=== PATIENT | female | born 1995 | race Caucasian/White ===

== ENCOUNTER 2017-07-04 05:38 | Inpatient (IN) ==
[2017-07-04] MEDS ORDERED: ONDANSETRON 4 MG/2 ML VIAL IV PRN ×2 (05:56→17:36)
[2017-07-04] MEDS ORDERED: MEPERIDINE 50 MG/1 ML VIAL IV PRN (05:56)
[2017-07-04] MEDS ORDERED: BUTORPHANOL 2 MG/ML VIAL IV PRN (05:56)
[2017-07-04] MEDS ORDERED: OXYTOCIN/LR 20 UNIT/1,000 ML BAG IV SCH (06:00)
[2017-07-04] MEDS: LACTATED RINGERS 1,000 ML IV SCH ×2 (06:25→14:30)
[2017-07-04 06:40] LABS: Basophils % 0.2 % (0.0-0.8); Eosinophils # 0.1 10*3/uL (0.0-0.87); Eosinophils % 1.2 % (0.00-10.9); Hematocrit 34.2 VOL% (35.7-47.0); Hemoglobin 11.4 GM/DL (12.0-16.0); Immature Granulocytes % 0.8 %; Immature Granulocytes Absolute 0.08 #; Lymphocytes # 1.9 10*3/uL (1.4-4.0); Lymphocytes % 19.2 % (21.3-54.2); Mean Corpuscular HGB Conc 33.3 GM/DL (32-36); Mean Corpuscular Hemoglobin 29 PG (27-34); Mean Corpuscular Volume 88.1 FL (87-102); Mean Platelet Volume 11.2 FL (9.6-12.0); Monocytes # 0.6 10*3/uL (0.11-0.8); Monocytes % 6.3 % (1.7-12.7); Neutrophils # 7.1 10*3/uL (1.4-7.4); Neutrophils % 72.3 % (38.7-73.9); Platelet Count 224 T/CUMM (130-400); Red Blood Count 3.88 MC/CUMM (3.8-5.5); Red Cell Distribution Width 14.9 % (9.3-17.3); White Blood Count 9.9 T/CUMM (4-12)
[2017-07-04 07:17] LABS: Albumin 2.4 G/DL (3.4-5.0); Bilirubin,Total 0.5 MG/DL (0.2-1.0); Calcium 8.2 MG/DL (8.5-10.1); Osmolality,Calculated 277.4 MOS/KG (273-304); Potassium 3.7 MMOL/L (3.5-5.1); Total Protein 5.8 G/DL (6.4-8.3)
--- NOTE | 2017-07-04 08:40 | OB/GYN History & Physical ---
History of Present Illness Chief complaint: In for elective induction due to term . History of present illness: Ms. Faustin is a 21 year old female with a 2 para 0 AB 1 her VIELKA is 07/07/2017 estimated gestational age of 39 weeks and 4 days. She presents for elective induction of labor due to term . The risk and benefits of been thoroughly discussed with this patient and significant other, plan of care has been discussed with Dr. Mccracken and all parties are in agreement plan. The patient began her care late at the [facility] she then received routine care thereafter. Her was uncomplicated until yesterday when the patient started to experience symptoms of Pabon palsy. She has left-sided facial drooping. labs: She is a positive, rubella is immune, RPR is nonreactive, hepatitis B negative, HIV negative, GBS culture negative. Review of systems is negative with exception of above. Home Medications Medication Instructions Recorded Confirmed Type Labetalol Tab [Trandate Tab] 100 mg PO BID 07/04/17 07/04/17 History Allergies Allergy/AdvReac Type Severity Reaction Status Date / Time No Known Allergies Allergy Verified 06/18/17 16:46 12 point system: reviewed and no additional remarkable complaints except as stated Medical,Surgical,& Family Hx - Medical History Cardio: History of: Hypertension Reproductive: No history of: Ectopic , Complication - Surgical History Surgical History: noncontributory Cardiac Surgeries: Patient Denies: Cardiac Catheterization Reproductive Surgeries: Patient denies;: Section - Family History Family History: Reports;: Family Hypertension (mother) - Social History Smoking Status: Never smoker Frequency of Alcohol Use: None Type of Drug Use: None Marital Status: Single Lives With:: Significant Other Functional capacity: independent ambulation 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 - Constitutional Vitals: Vital Signs Temp Pulse Resp BP 07/04/17 07:39 97.4 F L 113 H 20 108/64 General appearance: no acute distress - Antepartum / Post Antepartum Exam Cervix - Dilatation: 4 cm Effacement: 70% Station: -2 Rupture: Intact Presentation: Vertex Heart Rate: 140s Breast: bilateral: normal Vagina: Present: normal moisture Uterus exam: Present: enlarged - Head Head exam: Present: other (Left-sided facial droop) - Respiratory Respiratory exam: Present: clear to auscultation bilaterally - Cardiovascular Cardiovascular exam: Present: regular rate and rhythm - GI/Abdominal GI/Abdominal exam: Present: normal bowel sounds - Extremities Exam Extremities exam: Present: normal inspection - Neurological Exam Neurological exam: Present: alert, oriented X3 - Psychiatric Psychiatric exam: Present: normal affect, normal mood - Skin Skin exam: Present: normal color, warm Assessment and Plan (1) 39 weeks gestation of Status: Acute Assessment and plan: Admit IV fluids IV Pitocin per protocol Artificial rupture membranes when appropriate Internal monitors if indicated Epidural anesthesia if desired Anticipate Current Visit: Yes Results - Labs CBC & BMP: 07/04/17 06:15 07/04/17 06:15
[2017-07-04] MEDS ORDERED: diphenhydrAMINE 50 MG/1 ML VIAL IV PRN ×2 (09:00)
[2017-07-04] MEDS ORDERED: LACTATED RINGERS 1,000 ML IV ONE (09:00)
[2017-07-04] MEDS ORDERED: ePHEDrine 50 MG/ML AMP IV PRN (09:00)
[2017-07-04] MEDS ORDERED: PROMETHAZINE 25 MG/1 ML VIAL IM ONE (09:00)
[2017-07-04] MEDS ORDERED: hydrOXYzine HCL 25 MG/1 ML VIAL IM PRN (09:00)
[2017-07-04] MEDS ORDERED: ONDANSETRON 4 MG/2 ML VIAL IV ONE (09:00)
[2017-07-04] MEDS ORDERED: CITRIC ACID/SODIUM CITRATE 30 ML UDCUP PO ONE (09:00)
[2017-07-04] MEDS ORDERED: fentaNYL 2 MCG/ROPIV 0.2% EPID 150 ML EPIDURAL SCH (09:00)
[2017-07-04] MEDS ORDERED: FAMOTIDINE 20 MG/2 ML VIAL IV ONE (09:00)
[2017-07-04 14:43] LABS: Apearance,Urine Slightly Hazy (Clear); Bacteria,Urine Occasional /HPF (Few); Bilirubin,Urine Negative (Negative); Blood, Urine Negative (Negative); Glucose,Urine (UA) Negative (Negative); Ketones,Urine 5 mg/dL (Negative); Mucus,Urine Occasional /LPF (Occasional); Nitrite,Urine Positive (Negative); Protein,Urine Negative; RBC,Urine 1 /HPF (0-4); Squamous Epithelial Cell,Urine Occasional /HPF (0-10); Urine Color Yellow (Yellow); Urine Specific Gravity 1.015 (1.001-1.035); WBC,Urine <1 /HPF (0-6)
[2017-07-04] MEDS ORDERED: LIDOCAINE 1% 50 ML VIAL ONE (16:43)
[2017-07-04] MEDS ORDERED: oxyCODONE/ACETAMINOPHEN 5-325 MG TABLET PO PRN (17:36)
[2017-07-04] MEDS ORDERED: HYDROCORTISONE 2.5% RECTAL CREAM 30 GM TUBE TOP PRN (17:36)
[2017-07-04] MEDS ORDERED: ACETAMINOPHEN 325 MG TABLET PO PRN (17:36)
[2017-07-04] MEDS ORDERED: LANOLIN 50% CREAM 0.3 OZ TUBE TOP PRN (17:36)
[2017-07-04] MEDS ORDERED: RHO(D) IMMUNE GLOBULIN 300 MCG SYRINGE IM ONE (17:36)
[2017-07-04] MEDS ORDERED: OXYTOCIN/LR 20 UNIT/1,000 ML BAG IV ONE (17:36)
[2017-07-04] MEDS ORDERED: MEASLES/MUMPS/RUBELLA VACCINE 0.5 ML VIAL SUBCUT ONE (17:36)
[2017-07-04] MEDS ORDERED: DIPH/TET/ACEL PERT BOOSTER VACCINE 0.5 ML VIAL IM ONE (17:36)
[2017-07-04] MEDS ORDERED: BISACODYL 10 MG SUPP RECTAL PRN (17:36)
[2017-07-04] MEDS ORDERED: BENZOCAINE 20%/MENTHOL 0.5% SPRAY 56 GM CAN TOP PRN (17:36)
[2017-07-04] MEDS ORDERED: WITCH HAZEL PADS 100/JAR TOP PRN (17:36)
[2017-07-04] MEDS ORDERED: IBUPROFEN 800 MG TABLET PO PRN (17:36)
--- NOTE | 2017-07-04 17:36 | Event Note ---
Stage I of labor Prostaglandin gel IV Pitocin Epidural anesthetic Artificial rupture membranes clear fluid heart tones category 1 Stage II Delivery time is 5:02 PM Cord blood and cord gas obtained Male 8 lbs. 9 oz. Apgars was 91 minute and 9 at 5 minutes Stage III 3 cord vessels noted Placenta was delivered on the complication Blood loss was 300 cc Small vaginal wall laceration repair with #3-0 chromic on the right lateral wall. Mother and stable
[2017-07-04] MEDS: DOCUSATE SODIUM 100 MG CAPSULE PO SCH (22:35)
[2017-07-04] MEDS: oxyCODONE/ACETAMINOPHEN 5-325 MG TABLET PO PRN (22:35)
[2017-07-04] MEDS: LABETALOL 100 MG TABLET PO SCH (22:35)
[2017-07-05 04:57] LABS: Basophils % 0.2 % (0.0-0.8); Eosinophils # 0.1 10*3/uL (0.0-0.87); Eosinophils % 0.7 % (0.00-10.9); Hematocrit 32.5 VOL% (35.7-47.0); Hemoglobin 10.3 GM/DL (12.0-16.0); Immature Granulocytes Absolute 0.11 #; Lymphocytes % 17.6 % (21.3-54.2); Mean Corpuscular HGB Conc 31.7 GM/DL (32-36); Mean Corpuscular Hemoglobin 29 PG (27-34); Mean Corpuscular Volume 91.3 FL (87-102); Mean Platelet Volume 11.2 FL (9.6-12.0); Monocytes # 0.9 10*3/uL (0.11-0.8); Monocytes % 8.4 % (1.7-12.7); Neutrophils # 8.1 10*3/uL (1.4-7.4); Neutrophils % 72.1 % (38.7-73.9); Platelet Count 178 T/CUMM (130-400); Red Blood Count 3.56 MC/CUMM (3.8-5.5); Red Cell Distribution Width 14.6 % (9.3-17.3); White Blood Count 11.2 T/CUMM (4-12)
[2017-07-05] MEDS: DOCUSATE SODIUM 100 MG CAPSULE PO SCH ×2 (08:25→20:30)
[2017-07-05] MEDS: LABETALOL 100 MG TABLET PO SCH ×2 (08:25→20:30)
--- NOTE | 2017-07-05 09:22 | Anesthesia Post-Op ---
Anesthesia Post OP - Post Ansesthetic Evaluation Patient seen in post op: Yes Resp: within normal limits CV: within normal limits Mental: within normal limits Temp: within normal limits [id number]: within normal limits Nausea and Vomiting: within normal limits Pain: within normal limits
--- NOTE | 2017-07-05 15:14 | OB/GYN Progress Note ---
Assessment and Plan (1) 39 weeks gestation of Status: Acute Assessment and plan: Admit IV fluids IV Pitocin per protocol Artificial rupture membranes when appropriate Internal monitors if indicated Epidural anesthesia if desired Anticipate Current Visit: Yes (2) Vaginal delivery Status: Acute Assessment and plan: Initiate routine orders. 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 Still having some left-sided facial droop. Exam MATERIALS DEVELOPMENT ENGINEER - Constitutional Vitals: Vital Signs Temp Pulse Resp BP Pulse Ox 07/05/17 12:00 96.8 F L 93 H 18 122/69 98 07/05/17 08:00 97.1 F L 86 19 111/86 100 07/05/17 04:00 96.1 F L 92 H 18 95/64 98 07/05/17 03:00 20 07/05/17 02:00 18 07/05/17 01:00 18 07/05/17 00:00 97.3 F L 105 H 18 122/86 97 07/04/17 23:00 100 H 18 118/78 99 07/04/17 22:00 112 H 18 126/78 99 07/04/17 21:00 97.8 F 107 H 18 118/82 97 07/04/17 19:31 98.4 F 113 H 18 106/74 General appearance: no acute distress - Antepartum / Post Post Exam Breast: bilateral: normal Abdomen obstetrics: Present: bowel sounds normal Vagina: Present: normal moisture Uterus exam: Present: enlarged Anus/Rectum: Present: normal perianal skin - ENT ENT exam: Present: other (facial drooping) - Respiratory Respiratory exam: Present: clear to auscultation bilaterally - Cardiovascular Cardiovascular exam: Present: regular rate and rhythm - GI/Abdominal GI/Abdominal exam: Present: normal bowel sounds, soft - Extremities Exam Extremities exam: Present: normal inspection - Neurological Exam Neurological exam: Present: alert, oriented X3 - Psychiatric Psychiatric exam: Present: normal affect, normal mood - Skin Skin exam: Present: normal color, warm Results - Labs CBC & BMP: 07/05/17 04:31 07/04/17 06:15
--- NOTE | 2017-07-05 15:18 | Discharge Summary ---
Hospital Course - Hospital Course Hospital Course: Patient presented to the labor department for elective induction of labor due to term . She subsequently delivered a viable with no complications. However the patient did present with facial drooping and tingling and suspected Pabon's palsy. Otherwise she has had a normal course. Her bleeding is minimal with no odor. Her perineum is intact with no edema. Her fundus is firm and midline. Bowel sounds are positive. She is bonding well with her . Her vital signs and lab values are stable. A neurological consult will be made prior to discharge. Contraception options has been discussed. The patient will be discharged to home with pain meds and an appointment to follow-up in our office. Diagnosis - Discharge Diagnosis (1) 39 weeks gestation of Status: Acute (2) Vaginal delivery Status: Acute Specialty Discharge - Follow Up or Referrals Follow up with: Brian Mccracken MD [Physician] - (Follow-up in 6 weeks.) Discharge Plan - Discharge Data Disposition: Disch To Home/Self Care Condition at Discharge: Stable Discharge Diet: advance to your usual diet Activity: resume usual activities as tolerated Hygiene: may shower Weight Bearing at Discharge: weight bear as tolerated Driving: no restrictions Contact your physician if you experience:: fever over 101, pain uncontrolled by pain medications - Discharge Medications New Acetamin/Codeine 300-30 Tab [Tylenol/Codeine #3] 2 tablet PO Q4H #30 tablet Ibuprofen Tab [Motrin Tab] 800 mg PO Q6H PRN #30 tablet PRN Reason: Pain Moderate (4-7) Labetalol Tab [Trandate Tab] 100 mg PO BID #60 tablet No Action Labetalol Tab [Trandate Tab] 100 mg PO BID - Follow Up or Referral - Forms/Instructions Exam - Constitutional Vitals: Period Temp Pulse Resp BP Sys/Rico Pulse Ox Last 24 Hr 96.1 F-98.4 F 86-113 18-20 95-126/64-86 97-100 General appearance: no acute distress - Respiratory Respiratory exam: Present: clear to auscultation bilaterally - Cardiovascular Cardiovascular exam: Present: regular rate and rhythm - GI/Abdominal GI/Abdominal exam: Present: normal bowel sounds, rebound - Extremities Exam Extremities exam: Present: normal inspection - Neurological Exam Neurological exam: Present: alert, oriented X3 - Psychiatric Psychiatric exam: Present: normal affect, normal mood - Skin Skin exam: Present: normal color, warm Discharge Results Procedures and tests throughout hospitalization: Pending Orders 07/04/17 Urine Culture Routine 07/04/17 05:57 Urinalysis Routine Labs on day of discharge: Labs from last 24 hours 07/05/17 04:31 WBC 11.2 RBC 3.56 L Hgb 10.3 L Hct 32.5 L MCV 91.3 MCH 29 MCHC 31.7 L RDW 14.6 Plt Count 178 D MPV 11.2 Neut % (Auto) 72.1 Lymph % (Auto) 17.6 L Bacon % (Auto) 8.4 Eos % (Auto) 0.7 Baso % (Auto) 0.2 Neut # (Auto) 8.1 H Lymph # (Auto) 2.0 Bacon # (Auto) 0.9 H Eos # (Auto) 0.1 Baso # (Auto) 0.0 Immature Gran % 1.0 Nucleated RBC % 0.0 Immature Gran # 0.11 Nucleated RBCs # 0.00 Immature Plt Fraction 0.0 Preliminary micro results at discharge 07/04/17 Unknown Urine Culture - Preliminary Urine,Voided Gram Negative Rods DS: Provider Date of admission: 07/04/17 05:55 Primary care physician: . No PCP Attending physician on admission: Brian Mccracken MD Consults: 07/04/17 05:57 Consult to Anesthesiology [CONS] Routine Consulting Provider: Reason for Anesthesiology: Epidural Consult Comment: Epidural for pain managment 07/04/17 17:38 Consult to Cable Tv Installer [CONS] Routine Consult Cable Tv Installer: Breast Feeding Discharging clinician: Laxmi Grimm CNM Expected date of discharge: 07/05/17
[2017-07-05] MEDS: oxyCODONE/ACETAMINOPHEN 5-325 MG TABLET PO PRN (16:06)
[2017-07-06] MEDS: oxyCODONE/ACETAMINOPHEN 5-325 MG TABLET PO PRN (02:12)
[2017-07-06] MEDS: LABETALOL 100 MG TABLET PO SCH (10:20)
[2017-07-06] MEDS: DOCUSATE SODIUM 100 MG CAPSULE PO SCH (10:20)
[2017-07-06 14:19] VITALS: BP 146/85
== END 2017-07-06 14:40 | disposition home or self-care (01) | DRG 560 ==
LOC: N.LDOUT 05:38 → N.LD 05:42 → N.OB 21:00
PROVIDERS: ADMIT Obstetrics & Gynecology; ATTEND Obstetrics & Gynecology